=== PATIENT | male | born 1980 | race Asian ===

== ENCOUNTER 2017-02-01 00:23 | Emergency (ER) | payer BC ==
[~2017-02-01] VITALS: Ht 175.3 cm; Wt 75.3 kg
[2017-02-01 01:44] LABS: PLATELET COUNT 195 K/uL (142-355)
[2017-02-01 01:57] LABS: POTASSIUM 3.3 mmol/L (3.6-5.2); SODIUM 142 mmol/L (136-145)
[2017-02-01 04:42] VITALS: BP 124/70; TEMP 98
== END 2017-02-01 04:44 | disposition home or self-care (01) ==
LOC: ED 00:23
PROVIDERS: Specialist
DX: G44.89 Other headache syndrome (principal)
CPT/HCPCS: 36415; 80053; 80307; 81000; 81002; 85027; 85651; 87798; 96361; 96365; 99284; G0479; J1200; J1885; J2550

== ENCOUNTER → 2019-01-09 16:48 | Outpatient (CLI) | payer BC | END | disposition home or self-care (01) | LOC: AMB 16:48 | DX: Z04.89 Encounter for examination and observation for other specified reasons (principal) ==

== ENCOUNTER 2019-07-24 10:12 | Outpatient (CLI) | payer BC | END 2019-07-24 22:33 | disposition home or self-care (01) | LOC: RAD 10:12 | DX: Z00.00 Encounter for general adult medical examination without abnormal findings (principal); J45.909 Unspecified asthma, uncomplicated; E11.9 Type 2 diabetes mellitus without complications; I10 Essential (primary) hypertension; M79.671 Pain in right foot; M79.89 Other specified soft tissue disorders; Z79.899 Other long term (current) drug therapy ==

== ENCOUNTER 2019-08-31 16:51 | Outpatient (CLI) | payer BC ==
[2019-08-31 17:20] LABS: PLATELET COUNT 190 K/uL (142-355)
[2019-08-31 17:41] LABS: POTASSIUM 3.8 mmol/L (3.6-5.2)
== END 2019-08-31 19:40 | disposition home or self-care (01) ==
LOC: LABW 16:51
PROVIDERS: Nurse Practitioner Family
DX: N52.9 Male erectile dysfunction, unspecified (principal); R53.81 Other malaise
CPT/HCPCS: 36415; 80053; 84153; 84402; 84403; 85027

== ENCOUNTER 2019-11-14 17:41 | Emergency (ER) | payer BC | END 2019-11-14 18:08 | disposition home or self-care (01) | LOC: ED 17:41 | DX: Z01.30 Encounter for examination of blood pressure without abnormal findings (principal) | CPT/HCPCS: 99281 ==

== ENCOUNTER 2021-01-13 09:55 | Outpatient (CLI) | payer BC | END 2021-01-13 23:59 | disposition home or self-care (01) | LOC: US 09:55 | PROVIDERS: ATTEND Nurse Practitioner Family | DX: R10.9 Unspecified abdominal pain (principal) ==